=== PATIENT | female | born 1975 | race Caucasian/White ===

== ENCOUNTER 2023-07-04 10:25 | Day surgery (SDC) | payer BC, OTHER ==
[2023-07-04] MEDS ORDERED: Ringers Lactate 1,000 ML IV ONE (11:02)
[2023-07-04] MEDS ORDERED: LIDOCAINE HCL/EPINEPHRINE 20 ML MDV ONE (13:06)
[2023-07-04] MEDS ORDERED: FENTANYL CITR 100 MCG/2 ML ONE (13:22)
[2023-07-04] MEDS ORDERED: MIDAZOLAM HCL 2 MG/2 ML INJ ONE (13:23)
[2023-07-04] MEDS ORDERED: ONDANSETRON 4 MG/2 ML VIAL ONE (13:23)
[2023-07-04] MEDS ORDERED: propofoL 200 MG/20 ML VIAL IV ONE (13:23)
[2023-07-04] MEDS ORDERED: LIDOCAINE 2% MPF 5 ML VIAL ONE (13:23)
[2023-07-04] MEDS ORDERED: dexAMETHasone 10 MG/ML VIAL ONE (13:49)
[2023-07-04] MEDS ORDERED: KETOROLAC 30 MG/ML INJ ONE (14:17)
[2023-07-04 16:34] VITALS: BP 123/92; O2SAT 99
[2023-07-04 16:38] VITALS: TEMP 97
--- NOTE | 2023-07-04 18:30 | OP ---
Date of Procedure: 07/04/2023 Surgeon: Shona Lai MD Preoperative Diagnoses: Menorrhagia (AUB-L), iron-deficiency anemia, and possible postcoital bleedin g. Postoperative Diagnoses: Menorrhagia (AUB-L), iron-deficiency anemia, and possible postcoital bleedi ng, and thickened irregular endometrium. Procedures Performed: 1.Exam under anesthesia; Pap, HPV collection. 2.Diagnostic hysteroscopy, dilatation and curettage. Anesthesia: General with LMA and paracervical block. Specimens: Endometrial curettings. Comparisons: No complications. Drains: No drains. Condition: Stable. Findings: Endometrial cavity empty. Endometrium appeared to be irregular and thickened. No cavity distortion. Indications: Patient is a 47-year-old lady presented with significant heavy bleeding and fairly cons tant bleeding and intermenstrual bleeding, possible postcoital bleeding. She also would like to conc eive. She has been advised to have endometrial sampling a year ago. Has followed through now and kortney was offered endometrial sampling in the office, but as she had prior experience that was intolerabl e for sampling outpatient. She was consented for an inpatient exam under anesthesia, collection of P ap smear, HPV and hysteroscopy, D and C, to rule out cervical dysplasia as well as atypia or malignan cy. Description Of Procedure: After informed consent was re-verified, she was taken back to OR, placed i n supine fashion on the operating table. General anesthesia was given. She was placed in a dorsal l ithotomy position using Ugo stirrups. A speculum was placed to expose the cervix. Pap smear and HPV were done. There was some bleeding at the external os, which I had to clear prior to the collection of the Pap. The anterior lip was injected with 3 cc of lidocaine and then 3 and 4 cc at 4 and 8 o'clock positions of the cervicovaginal junction for a paracervical block, prepped x3 with Betadine was done. Anterio r lip grasped with 2 Allis clamps. Diagnostic SlimLine hysteroscope was entered through the cervical canal into the uterine cavity under direct vision. After the cavity was rinsed, the endometrium was visualized. It was thickened and irregular, especially in the anterior wall. No intracavitary mass es. Both tubal ostia were visualized and cavity was undistorted. No irregularities. Scope was then pulled out and endometrial curettings were performed with a 0 curette and the significant amount of sample was retrieved and sent for pathology. Instruments were removed. Instruments and sponge count s were correct at the end of the case. Patient tolerated the procedure well. She was recovered from anesthesia and taken to PACU in stable condition. She has a 1-week followup results appointment ratna ellis and her parents will be informed of her brief findings. GABBIE/ALMA ROSA Voice ID: [id number] Report ID: [id number]
== END 2023-07-04 15:45 | disposition home or self-care (01) ==
LOC: OR 10:25
PROVIDERS: ATTEND Obstetrics & Gynecology
PROC: 0UDB8ZX Extraction of Endometrium, Via Natural or Artificial Opening Endoscopic, Diagnostic (ICD-10-PCS; principal; 2023-07-04 11:30)
DX: N92.1 Excessive and frequent menstruation with irregular cycle (principal); D50.9 Iron deficiency anemia, unspecified; R93.89 Abnormal findings on diagnostic imaging of other specified body structures; Z12.4 Encounter for screening for malignant neoplasm of cervix
CPT/HCPCS: 36415; 84703; 88305; J1100; J2001; J2250; J2405; J2704; J3010; J7120